=== PATIENT | male | born 1945 | race Caucasian/White ===

== ENCOUNTER 2020-03-16 16:04 | Emergency (ER) | payer SELFPAY ==
[~2020-03-16] VITALS: Ht 165.1 cm; Wt 75.8 kg
[~2020-03-16 16:04] MED LIST: ASPIRIN325 MG PO; GLIMEPIRIDE2 MG PO; GLUCOPHAGE500 MG PO; MULTI VITAMIN1 EACH PO; PRAVACHOL40 MG PO; TOPROL XL25 MG PO
[2020-03-16] MEDS ORDERED: LOSARTAN POTASS50 MG PO (16:21)
[2020-03-16] MEDS ORDERED: TAMSULOSIN HCL0.4 MG PO (16:21)
--- NOTE | 2020-03-17 06:24 | EKG ---
[facility] [address] [place] [address] Signed Normal sinus rhythm Right bundle branch block T wave abnormality, consider inferolateral ischemia Abnormal ECG No previous ECGs available Confirmed by EBST JIMENEZ MD ([id number]) on 03/17/2020 6:24:47 AM Electronically Signed By: BEST JIMENEZ MD 03/17/20623 PATIENT NAME: RHIANNAARABELLA NORBERT Electrocardiogram DATE OF : 41 PHYSICIAN: BEST JIMENEZ MD REPORT #: [id number] REPORT IS CONFIDENTIAL AND NOT TO BE RELEASED WITHOUT AUTHORIZATION
== END 2020-03-16 20:18 | disposition home or self-care (01) ==
LOC: ED 16:04
DX: R55 Syncope and collapse (principal); E86.0 Dehydration; C95.90 Leukemia, unspecified not having achieved remission; E11.9 Type 2 diabetes mellitus without complications; I10 Essential (primary) hypertension; F17.200 Nicotine dependence, unspecified, uncomplicated; Z88.0 Allergy status to penicillin; Z79.899 Other long term (current) drug therapy; Z79.84 Long term (current) use of oral hypoglycemic drugs; Z79.82 Long term (current) use of aspirin
CPT/HCPCS: 80053; 83735; 84484; 85025; 93005; 93010; 96360; 96361; 99284-25; C9803; J7030

== ENCOUNTER 2021-12-31 11:30 | Inpatient (IN) | payer MEDICARE, MEDICAID ==
[~2021-12-31] VITALS: Ht 167.6 cm; Wt 67.3 kg
[~2021-12-31 11:30] MED LIST changes: +LOSARTAN POTASS50 MG PO; +TAMSULOSIN HCL0.4 MG PO
[2021-12-31] MEDS ORDERED: METOPROLOL TART25 MG PO (15:50)
[2021-12-31] MEDS ORDERED: LO-DOSE ASPIRIN81 MG PO (15:57)
[2021-12-31] MEDS ORDERED: ROSUVASTATIN CA20 MG PO (15:57)
[2021-12-31] MEDS ORDERED: METFORMIN HCL500 M1 PO (15:58)
--- NOTE | 2021-12-31 16:00 | NUR ---
76 YR OLD MALE PATIENT ADMITTED TO CCU FROM ER VIA STRETCHER UNDER DR. VELEZ WITH DX OF UROSEPSIS. PATIENT HAS BEEN HAVING CHILLS WITH WEAKNESS FOR A COUPLE OF DAYS. UPON ARRIVAL TO CCU PATIENT IS AWAKE, ALERT AND ORIENTED. ADMISSION PROCESS STARTED.
--- NOTE | 2021-12-31 18:00 | NUR ---
TOOK DINNER, DENIES PAIN. RESTING WITH HOB ELEVATED. STANDING AT BEDSIDE TO VOID.
--- NOTE | 2021-12-31 20:05 | NUR ---
URNAL EMPTIED. PATIENT RESTING IN BED. DENIES ANY CONCERNS OR NEEDS. VS STABLE. IV FLUIDS PER ORDER, SITE WNL.
--- NOTE | 2021-12-31 21:37 | NUR ---
PROVIDED PATIENT WITH SSI FOR BLOOD GLUCOSE 145. PATIENT STATES HE "SOMETIMES" CHECKS HIS BLOOD GLUCOSE AND IS AWARE OF HIS LANGUAGE PATH POOR GLUCOSE CONTROL AND ELEVATED A1c. PATIENT IS AAOX4. DENIES CONCERNS. ORAL TEMP WNL. VS STABLE. IV SITE WNL, IVF PER ORDER. GOOD URINE OUTPUT VIA URNAL. PATIENT ON ROOM AIR AND LUNGS ARE CLEAR. NO GI UPSET. ASSISTED TO REPOSITION IN THE BED. CALL LIGHT IN REACH.
--- NOTE | 2022-01-01 00:05 | NUR ---
PATIENT CALLED FOR URNAL TO BE EMPTIED. PATIENT RESTING IN BED. APPEARS COMFORTABLE. MENTIONS BEING WARM. ORAL TEMP WNL. ROOM TEMP ADJUSTED. IVF PER ORDER, SITE WNL. ALLOWED PATIENT TO REST. CALL LIGHT IN REACH.
--- NOTE | 2022-01-01 01:19 | NUR ---
IV PUMP BEEPING, NEW BAG HUNG. pt UP TO VOID 275ML LIGHT YELLOW URINE. BACK TO BED. IVF INFUSING PER ORDERS. CALL LIGHT WITHIN REACH.
--- NOTE | 2022-01-01 02:45 | NUR ---
URNAL EMPTIED. PATIENT RESTING IN BED. VS STABLE. DENIES ANY CONCERNS. IV SITE WNL.
--- NOTE | 2022-01-01 05:30 | NUR ---
LAB IN TO DRAW BLOOD. PATIENT IS AAOX4. RA, LUNGS CLEAR. NO GI UPSET. MODERATE ORAL INTAKE OVER NIGHT. IV FLUIDS PER ORDER, SITE WNL X2. GOOD URINE OUTPUT.
--- NOTE | 2022-01-01 07:44 | NUR ---
accuchbritton 115. DENIES PAIN. STATES HE FEELS BETTER TODAY. DENIES CHILLING.
--- NOTE | 2022-01-01 09:34 | NUR ---
RESTING, NO DISTRESS NOTED.
--- NOTE | 2022-01-01 11:00 | NUR ---
DR. VELEZ HERE TO SEE PATIENT. ORDERS RECIEVED TO TRANSFER TO MED-SURG. PATIENT IS RESTIN IN BED. DENIES PAIN.
--- NOTE | 2022-01-01 12:45 | NUR ---
to med-surg via chair. IVF AND MAG RIDER INFUSING.
--- NOTE | 2022-01-01 13:37 | NUR ---
Patient arrived to the medical floor from CCU. Patient is a&ox4, on room air, respirations even and non labored. Patient denies pain at this time. Oriented pt to room and call light. No current needs. Personal supplies and call light within reach.
--- NOTE | 2022-01-01 19:59 | NUR ---
REPORT RECEIVED FROM DAY SHIFT RN. PT LYING IN BED ALERT AND ORIENTED. DENIES NEEDS. WHITE BOARD UPDATED. CALL LIGHT IN REACH.
--- NOTE | 2022-01-01 21:02 | NUR ---
EMPTIED URINAL. V/S AND I&O'S AND BLOOD SUGAR CHECK DONE. ICE WATER REFILLED.
--- NOTE | 2022-01-01 22:06 | NUR ---
EVENING ASSESSMENT COMPLETE. SCHEDULED MEDS ADMIN PER EMAR. PT DENIES PAIN OR NAUSEA. BP ELEVATED. MANUAL 168/64. PT ASYMPTOMATIC. IVF INFUSING WNL. VS AND I&O COMPLETE. PT DENIES QUESTIONS OR CONCERNCS. CALL LIGHT IN REACH.
--- NOTE | 2022-01-01 23:24 | NUR ---
IV PUMP ALARMING. ISSUE RESOLVED. PT REPORTS HE IS RESTING WELL. DENIES NEEDS.
--- NOTE | 2022-01-02 00:41 | NUR ---
URINAL EMPTIED OF 400 ML CLEAR YELLOW URINE. BP REASSESSED, NOTED TO BE LOWER THAN PREVIOUS ASSESSMENT. NO FURTHER NEEDS.
--- NOTE | 2022-01-02 02:21 | NUR ---
IV PUMP ALARMING. NEW BAG IVF INFUSING WNL. SBA TO BR TO VOID AND HAVE BM. BACK TO BED, GAVIN WELL. ASSESSMENT COMPLETE. PT SWEATY. TEMP 97.7. LINENS CHANGED. NO FURTHER NEEDS. CALL LIGHT IN REACH.
--- NOTE | 2022-01-02 06:51 | NUR ---
VS AND I&O COMPLETE. PT DENIES PAIN OR NAUSEA. IVF INFUSING WNL. PT DENIES FURTHER NEEDS. CALL LIGHT IN REACH.
--- NOTE | 2022-01-02 07:37 | NUR ---
BEDSIDE REPORT RECD. FROM NIGHT RN, ASSUMED ALL CARE OF PT. RESTING IN BED, EYES CLOSED, RESPIRATIONS EVEN
--- NOTE | 2022-01-02 09:54 | NUR ---
SIMONA IS SITTING IN CHAIR VITALS AND I&O DONE. CALL LIGHT IN REACH. NO FURTER NEEDS AT THIS TIME.
--- NOTE | 2022-01-02 09:58 | NUR ---
PATIENT INDICATED THAT HE WAS PLANNING TO AMBULATE IN THE HALLWAY SOON HIS ANTIBIOTIC WAS FINISHED INFUSING.
--- NOTE | 2022-01-02 10:31 | NUR ---
ROUNDED ON PT. HE IS OOB IN CHAIR, SPEAKING WITH A STAFF MEMBER, NO NEEDS AT THIS TIME. IV ABX INFUSED. LR AT 75 ML/HR. BG CHECKS, GOOD APPETITE, ADEQUATE FLUIDS. DENIES PAIN. AWAITING URINE CX. HE WOULD LIKE TO WALK AROUND THE UNIT TODAY.
--- NOTE | 2022-01-02 11:26 | NUR ---
MED REC COMPLETE
--- NOTE | 2022-01-02 12:12 | NUR ---
ROUNDED ON PT., AMBULATED WITH RN AROUND THE HALLS FROM FRONT TO BACK TWO TIMES, TOLERATED WELL, STEADY ON HIS FEET, WALKED ALONG SIDE OF HIM, IVF HOOKED BACK UP WHEN BACK IN ROOM, ANTICIPATE POSSIBLE DISCHARGE TODAY , BACK IN ROOM IN CHAIR, CALL DOUGLAS AT CHAIR SIDE
[2022-01-02] MEDS ORDERED: NICOTINE1 EAC1 TD (12:26)
[2022-01-02] MEDS ORDERED: CIPROFLOXACIN500 MG PO (12:27)
[2022-01-02] MEDS ORDERED: TAMSULOSIN HCL0.4 MG PO (12:29)
--- NOTE | 2022-01-02 13:00 | NUR ---
I was able to visit with Ronald this afternoon, he is getting ready to discharge. He states that his care has been very good, stating they "have all been really nice and no one is snappy." He denies any concerns for self care needs upon discharge. He denies problems with filling prescriptions, purchasing groceries, etc. Pt also stated that he would like to get on the [employer] [place] [employer] as a secondary insurance, he states that he did discuss this with "the insurance lady" when she came in.
--- NOTE | 2022-01-02 14:08 | NUR ---
PT SITTING IN CHAIR, DRESSED AND WAITING FOR DC. PT IS PLEASANT, SAID HE FEELS SO MUCH BETTER. HE MENTIONED THAT HE IS THANKFUL HIS SONS BROUGHT HIIM IN TO ED. PT STATED HE IS PLEASED WITH HIS CARE, GAVE BLESSING AND WILL FOLLOW
== END 2022-01-02 13:50 | disposition home or self-care (01) | DRG 872 ==
LOC: ED 11:30 → MS 15:34 → CCU 15:46 → MS 01-01 12:45
PROVIDERS: ADMIT Internal Medicine; ATTEND Internal Medicine
DX: A41.89 Other specified sepsis (principal); N17.9 Acute kidney failure, unspecified; C91.10 Chronic lymphocytic leukemia of B-cell type not having achieved remission; N30.00 Acute cystitis without hematuria; R65.20 Severe sepsis without septic shock; B96.1 Klebsiella pneumoniae [K. pneumoniae] as the cause of diseases classified elsewhere; N40.1 Benign prostatic hyperplasia with lower urinary tract symptoms; I25.10 Atherosclerotic heart disease of native coronary artery without angina pectoris; Z20.822 Contact with and (suspected) exposure to COVID-19; Z95.1 Presence of aortocoronary bypass graft; E78.5 Hyperlipidemia, unspecified; I10 Essential (primary) hypertension; Z88.0 Allergy status to penicillin; I25.2 Old myocardial infarction; E11.9 Type 2 diabetes mellitus without complications; Z79.899 Other long term (current) drug therapy; Z79.82 Long term (current) use of aspirin; Z79.84 Long term (current) use of oral hypoglycemic drugs; F17.210 Nicotine dependence, cigarettes, uncomplicated; R35.1 Nocturia
CPT/HCPCS: 36415; 71045; 80048; 80053; 81001; 83036; 83605; 83735; 85007; 85025; 87040; 87077; 87088; 87186; 96365; 99285-25; A9270; C9803; J0696; J1650; J1815; J3475; J7030; J7121; U0003